=== PATIENT | male | born 1945 | race Caucasian/White ===

== ENCOUNTER 2020-01-08 14:04 | Emergency (ER) | payer OTHER ==
[2020-01-08 14:19] VITALS: BP 179/91; PULSE 88; TEMP 98.6; BMI 30.8
--- NOTE | 2020-01-08 15:23 | PDOC ---
History of Present Illness - General Chief Complaint: Urinary Problem Stated Complaint: DIFFICULTY URINATING NO BOWEL MOVEMENT TODAY Time Seen by Provider: 01/08/20 14:20 History Source: Patient Exam Limitations: No Limitations - History of Present Illness Initial Comments: Akira is a 74 yo obese M w a hx of CAD with stents, who is currently on aspirin and Plavix, HTN and HLD who presents to the [place] ER with 1 day of urinary hesitancy and urgency. Patient reports that last night he heard that calix virus will likely be around for another 2 years so he went to the liquor store and purchased a 750 mL bottle of Todd Walker black label and finished the bottle. This morning he woke up not feeling his best. States he is usually easily able to urinate but today he felt like he had an urge to urinate but was not able to which is highly abnormal for him. Also states that over the past 6 months he has occasionally been having difficulty achieving an erection and requests medications that can be used for help with this endeavor. Denies dysuria, abdominal pain, back pain, fevers, chills, nausea, vomiting, chest pain, difficulty breathing or SOB. Denies hx of BPH. PCP: None requests referall - Will refer to [facility] resident clinic Cards: Sigifredo Ordaz PSH: Cardiac bypass + stents, anal fissure removal, forehead skin cancer removal. Social Hx: Quit smoking 2002 - former heavy smjoker. Drinks alcohol recreationally Allergies: NKA, NKDA Past History - Medical History Allergies/Adverse Reactions: Allergies Allergy/AdvReac Type Severity Reaction Status Date / Time No Known Allergies Allergy Verified 01/08/20 14:06 Home Medications: Ambulatory Orders Aspirin [Aspirin EC] 325 mg PO DAILY 11/27/14 Clopidogrel Bisulfate [Plavix -] 75 mg PO DAILY 11/27/14 Metoprolol Succinate [Toprol Xl] 100 mg PO DAILY 11/27/14 Fenofibric Acid [Trilipix -] 135 mg PO DAILY 01/08/20 Isosorbide Mononitrate [Isosorbide Mononitrate ER] 30 mg PO DAILY 01/08/20 Cardiac Disorders: Yes (CAD) COPD: No HTN: Yes Hypercholesterolemia: Yes - Surgical History Cardiac Surgery: Yes (QUAD BYPASS 2002, 2003 STENTS) - Psycho-Social/Smoking History Smoking History: Former smoker Have you smoked in the past 12 months: No If you are a former smoker, when did you quit?: 2002 Information on smoking cessation initiated: No - Substance Abuse Hx (Audit-C & DAST Scrn) How often the patient has a drink containing alcohol: 2-3 times / week Number of drinks the patient has on a typical day: 3 or 4 How often the patient has six or more drinks on one occasion: Never Score: In Men: 4 or > Positive; In Women: 3 or > Positive: 4 Screen Result (Pos requires Nsg. Audit-10AR): Positive In the last yr the pt used illegal drug/Rx for NonMed reason: No Score: Yes response is considered Positive: 0 Screen Result (Positive result requires Nsg. DAST-10): Negative Review of Systems - Review of Systems Able to Perform ROS?: Yes Comments:: CONSTITUTIONAL: Absent: fever, no chills, no fatigue EYES: Absent: visual changes ENT: Absent: ear pain, no sore throat CARDIOVASCULAR: Absent: chest pain, no palpitations RESPIRATORY: Absent: cough, no SOB GI: Absent: abdominal pain, no nausea, no vomiting, no constipation, no diarrhea GENITOURINARY: Present: urgency, hesitancy Absent: dysuria, no frequency, no hematuria MUSKULOSKELETAL: Absent: back pain, no arthralgia, no myalgia SKIN: Absent: rash NEURO: Absent: headache *Physical Exam - Vital Signs Last Vital Signs Temp Pulse Resp BP Pulse Ox 98.6 F 88 16 179/91 H 97 01/08/20 14:05 01/08/20 14:05 01/08/20 14:05 01/08/20 14:05 01/08/20 14:05 - Physical Exam GENERAL: Well-appearing, well-nourished. No apparent distress. HEENT: Normocephalic, atraumatic. PERRL, EOM intact. CARDIOVASCULAR: Normal S1, S2. Regular rate and rhythm. PULMONARY: No evidence of respiratory distress. Lungs clear to auscultation bilaterally. No wheezing, rales or rhonchi. ABDOMEN: There is no suprapubic abdominal TTP. There is no CVA TTP. Soft, non-distended, non-tender. EXTREMITIES: Normal ROM in all four extremities. No gross deformities. SKIN: Warm, dry. No rash NEUROLOGICAL: No focal neurological deficits. ED Treatment Course - LABORATORY CBC & Chemistry Diagram: 01/08/20 14:45 01/08/20 14:45 - ADDITIONAL ORDERS Additional order review: Laboratory Results 01/08/20 14:40 Urine Color Yellow Urine Appearance Clear Urine pH 5.0 Urine Protein 2+ H Urine Glucose (UA) Negative Urine Ketones Trace Urine Blood Trace-intact Urine Nitrite Negative Urine Bilirubin 1+ H Urine Urobilinogen 0.2 Ur Leukocyte Esterase Negative Medical Decision Making - Medical Decision Making Akira is a 74 yo obese M w a hx of CAD with stents, who is currently on a spirin and Plavix, HTN and HLD who presents to the [place] ER with 1 day of urinary hesitancy and urgency. Patient reports that last night he heard that calix virus will likely be around for another 2 years so he went to the liquor store and purchased a 750 mL bottle of Todd Walker black label and finished the bottle. This morning he woke up not feeling his best. States he is usually easily able to urinate but today he felt like he had an urge to urinate but was not able to which is highly abnormal for him. Also states that over the past 6 months he has occasionally been having difficulty achieving an erection and requests medications that can be used for help with this endeavor. Denies dysuria, abdominal pain, back pain, fevers, chills, nausea, vomiting, chest pain, difficulty breathing or SOB. Denies hx of BPH. Vital Signs Temp Pulse Resp BP Pulse Ox 98.6 F 88 16 179/91 H 97 01/08/20 14:05 01/08/20 14:05 01/08/20 14:05 01/08/20 14:05 01/08/20 14:05 DDx IBNLT: UTI, pylo, ERIK, electrolyte/metabolic disturbance, rhabdomyolysis, Alcoholic induced injury/hangover Plan: cbc, bmp, ck, ua/uc, POCUS bedside bladder US exam, re-assess Urine: Appears red CBC,CMP Sodium 140 mmol/L (136-145) 01/08/20 14:45 Potassium 4.7 mmol/L (3.5-5.1) 01/08/20 14:45 Chloride 106 mmol/L (98-107) 01/08/20 14:45 Carbon Dioxide 24 mmol/L (21-32) 01/08/20 14:45 Anion Gap 10 MMOL/L (8-16) 01/08/20 14:45 BUN 32.6 mg/dL (7-18) H 01/08/20 14:45 Creatinine 1.7 mg/dL (0.55-1.3) H 01/08/20 14:45 Est GFR (CKD-EPI)AfAm 44.41 01/08/20 14:45 Est GFR (CKD-EPI)NonAf 38.32 01/08/20 14:45 Random Glucose 111 mg/dL (74-106) H 01/08/20 14:45 Calcium 9.4 mg/dL (8.5-10.1) 01/08/20 14:45 Creatine Kinase 619 U/L (26-308) H 01/08/20 14:45 The patient appears clinically sober, has no evidence of clinical intoxication, is A&O x4, has no sustained nystagmus, and appears to be capable and have capacity to make reasonable decisions. The patient states they are currently in the emergency department, knows who the president is, states the correct time, correct day, and correct month. The patient is ambulatory in ER and has walked around the nursing station multiple times with a straight and steady gait, and is not ataxic. Tolerating PO well, ate a sandwich and drank juice. Denies having any SI or HI. Patient states will not be driving home. Disposition: Patient Eloped from the ER before the labs and ultrasound could be performed. I tried calling the patient's phone number in the chart but the number appears to be out of service. Please note, this clinical encounter is taking place during a federal and state health care emergency attributable to the novel Calix Virus pandemic. The [place] of the Department of Health and Human Services has declared, pursuant to the Public Health Service Act 319F-3 (42 U.S.C. 247d-6d), that a covered persons activities related to medical countermeasures against COVID-19 will be immune from liability under Federal and State law. Discharge - Discharge Information Problems reviewed: Yes Clinical Impression/Diagnosis: Difficulty urinating Condition: Stable Disposition: ELOPED - Admission No - Follow up/Referral Referrals: [facility] at [place] [Provider Group] - Patient Discharge Instructions - Post Discharge Activity
[2020-01-08 17:06] LABS: BLOOD UREA NITROGEN 32.6 mg/dL (7-18); CALCIUM 9.4 mg/dL (8.5-10.1); CREATININE 1.7 mg/dL (0.55-1.3); POTASSIUM 4.7 mmol/L (3.5-5.1)
--- NOTE | 2020-01-08 17:23 | PDOC ---
Attending Attestation - Resident Resident Name: Nahum Pulliam - ED Attending Attestation I have performed the following: I have examined & evaluated the patient, The case was reviewed & discussed with the resident, I agree w/resident's findings & plan, Exceptions are as noted - HPI HPI: 01/08/20 17:29 74 years old past medical history significant for CAD stents aspirin Plavix hypertension hyperlipidemia presents to the ED with urinary hesitancy and constipation. Yesterday drink more scotch than he normally does was feeling unwell today came to the emergency department. Urinalysis and labs were sent symptoms are mild to moderate persistent constant no exacerbating relieving factors denies fever chills headache chest pain shortness of breath - Physicial Exam PE: 01/08/20 17:29 Vitals: Triage Vital signs reviewed General Appearance: No acute distress, well nourished well developed, Head: Atraumatic, Cardiac: Regular rate and rhythym, no murmurs, no rubs, no gallops, Lungs: Clear to auscultation bilateral, good air movement bilaterally, Abdomen: Soft, non distended, normal bowel sounds, non tender to palpation Extremities: Full range of motion to all extremities, no cyanosis, clubbing, or edema Skin: Warm and dry, no rashes or lesions, no rash, no petechiae Neuro: AOX3; cranial Nerves 2-12 grossly intact, strength intact to all extremities, sensation intact to all extremities, gait normal Psych: Normal mood, normal affect - Medical Decision Making 01/08/20 1 Well-appearing no apparent distress while in the emergency department patient was able to urinate Patient stated he was going to go outside for a breath of fresh air as he was uncomfortable with his mask patient then eloped from the ED called once at home but no answer Discharge - Discharge Information Problems reviewed: Yes Clinical Impression/Diagnosis: Difficulty urinating - Follow up/Referral Referrals: [facility] [place] [facility] at [place] [Provider Group] - Patient Discharge Instructions - Post Discharge Activity
[2020-01-08 19:20] LABS: BASO % 0.4 % (0-2.0); EOS % 0.5 % (0-4.5); HEMATOCRIT 52.2 % (35.4-49); HEMOGLOBIN 17.5 GM/dL (11.7-16.9); LYMPH % 10.3 % (8-40); MCH 31.9 pg (25.7-33.7); MCHC 33.5 g/dl (32.0-35.9); MEAN CELL VOLUME 95.4 fl (80-96); MEAN PLT VOLUME 9.9 fl (7.5-11.1); MONO % 8.6 % (3.8-10.2); NEUT % 80.2 % (42.8-82.8); PLATELET COUNT 180 K/MM3 (134-434); RBC 5.48 M/mm3 (4.00-5.60); RDW 14.1 % (11.9-15.9); WHITE BLOOD COUNT 10.6 K/mm3 (4.0-10.0)
== END 2020-01-08 18:11 | disposition left against medical advice (07) ==
LOC: FER 14:04
DX: R39.198 Other difficulties with micturition (principal)
CPT/HCPCS: 36415; 80048; 81003; 81015; 82550; 82553; 85025; 87086; 99283-25